=== PATIENT | female | born 1990 | race Caucasian/White ===

== ENCOUNTER 2017-04-06 01:20 | Emergency (ER) | payer OTHER ==
--- NOTE | ~2017-04-06 | CR63 ---
[facility]. [facility] A Service of [facility] & [facility] RADIOLOGY TEXT RESULTS PATIENT: LUZ MARIA BAY LOCATION: SED : 86 UNIT #: [id number] AGE: [address]: Pablo Atkins MD SEX: F ORDER DR: [id number] [place] [address] [id number] E MR#: [id number] Acc #: [id number] NAME: LUZ MARIA BAY. : 1990 SEX: F STUDY DATE/TIME: 04/06/2017 1:54 UNIT: SED ROOM: STUDY DESCRIPTION: CR Chest 2 View Attending Physician: Pablo Atkins M.D. Ordering Physician: Pablo Atkins M.D. MEDICAL IMAGING REPORT This report is preliminary unless electronic signature is present. EXAM Chest x-ray, 04/06/2017 HISTORY 26-year-old female in the ED complaining of chest pain, sore throat and productive cough. TECHNIQUE PA and lateral upright chest series. FINDINGS Heart size and pulmonary vascularity are normal. The lungs are expanded and clear. No visible pulmonary infiltrate or pleural effusion. No change since 08/09/2014. IMPRESSION Negative chest. No change since 08/09/2014. Dictated by... Efren Richardson M.D. THIS IS AN ELECTRONICALLY VERIFIED REPORT Efren Richardson M.D. at 04/06/2017 6:06 AM DIAN/clinton TD: 04/06/2017 02:20 JOB #: [id number] MEDICAL IMAGING REPORT Page 1 of 1
[~2017-04-06 01:20] MED LIST: ALBUTEROL17 GM; CELEXA PO; CIPRO PO; COLACE PO; DICLOFENAC PO; ERYTHROMYCIN O3.5 GM OD; FLONASE 0.05% N16 G1; GUAIFENESIN200 MG; MAGIC MOUTHWASH PO; NO MEDICATIONS; PHENERGAN25 M1 PO; PRAMOSONE 1%28.4 GM TOP; ROBAXIN PO; SUDAFED PO; TESSALON200 MG; TESSALON200 MG PO; VOLTAREN75 MG PO; ZITHROMAX
[2017-04-06] MEDS ORDERED: AMOXICILLIN875 MG PO (01:30)
== END 2017-04-06 02:26 | disposition home or self-care (01) ==
LOC: SED 01:20
DX: J20.9 Acute bronchitis, unspecified (principal); E11.9 Type 2 diabetes mellitus without complications; J45.909 Unspecified asthma, uncomplicated; F17.200 Nicotine dependence, unspecified, uncomplicated; Z79.899 Other long term (current) drug therapy
CPT/HCPCS: 71020; 99283